=== PATIENT | female | born 1925 | race Caucasian/White ===

== ENCOUNTER → 2016-11-12 | Outpatient (CLI) | payer MEDICARE ==
[~2016-11-12] MED LIST: ASPIR LOW81 MG PO; BACTRIM DS 8001 TA1 PO; CEFTIN250 MG PO; CIPROFLOXACIN500 MG PO; CITRACAL + D 311 TAB PO; DOC-Q-LACE100 MG PO; DURAGESIC1 EACH TD; DYAZIDE 25 MG-31 CAP PO; FENTANYL75 MCG/HR TD; FOSAMAX70 MG PO; LIDODERM 5% PATC1 EA PO; MICRO-K8 MEQ PO; MIRALAX17 GM/DOSE PO; MOM30 ML PO; MORPHINE SULFAT15 MG PO; MS CONTIN15 MG PO; Micro K10 MEQ PO; PRAVACHOL40 MG PO; PREVACID30 M1 PO; PYRIDIUM200 MG PO; SYNTHROID,LEV150 MCG PO; Synthroid,Levo75 MCG PO; TRIAMTERENE/HCT1 CAP PO; VENTOLIN 02.5 MG/3 M INH; XALATAN 0.005%2.5 ML INTRAOC; ZITHROMAX250 MG PO; [UNRECOGNIZED DRUG - OTHER] PO
== END | disposition home or self-care (01) ==
LOC: ORTHO 02:46
DX: M25.512 Pain in left shoulder (principal)